=== PATIENT | male | born 1975 | race Caucasian/White ===

== ENCOUNTER 2023-08-08 08:27 | Emergency (ER) | payer OTHER, SELFPAY ==
[2023-08-08] MEDS: TORADOL 30 MG IV (08:54)
[2023-08-08] MEDS: NSS 1000 IV (08:55)
[2023-08-08 09:02] LABS: % Basophils 0.6 % (0-2); % Immature Granulocytes 0.3 % (0-0.5); % Lymphocytes 20.3 % (20.5-51.1); % Monocytes 6.6 % (1.7-9.3); % Neutrophils 71.2 % (42.2-75.2); Absolute Basophils 0.1 10^3/uL (0-0.2); Absolute Eosinophils 0.1 10^3/uL (0-0.7); Absolute Lymphocytes 1.8 10^3/uL (1.2-3.4); Absolute Monocytes 0.6 10^3/uL (0.1-0.6); Absolute Neutrophils 6.3 10^3/uL (1.4-6.5); Hematocrit 43.2 % (39.0-52.0); Hemoglobin 15.2 g/dL (13.0-18.0); Mean Corp Hgb Conc. 35.2 g/dL (33.0-37.0); Mean Corpuscular Volume 90.9 fL (80.0-94.0); Mean Platelet Volume 9.9 fL (7.4-10.4); Nucleated Red Blood Cells % 0 % (-); Platelet Count 274 10^3/uL (130-400); Red Blood Cell Count 4.75 10^6/uL (4.70-6.10); Red Cell Dist. Width 12.5 % (11.5-14.5); White Blood Cell Count 8.9 10^3/uL (4.8-10.8)
[2023-08-08 09:28] LABS: ALT (SGPT) 19 U/L (0-50); AST (SGOT) 20 U/L (17-59); Albumin 4.9 g/dl (3.5-5.0); Alkaline Phosphatase 54 U/L (38-126); Blood Urea Nitrogen 12 mg/dl (9-20); Calcium 10.2 mg/dl (8.4-10.2); Carbon Dioxide 25 mmol/L (22-30); Chloride 105 mmol/L (98-107); Glucose 126 mg/dl (70-99); Sodium 141 mmol/L (135-145); Total Bilirubin 0.6 mg/dl (0.2-1.3); Total Protein 7.4 g/dl (6.3-8.2); eGFR > 60.00
[2023-08-08 09:33] LABS: Urine Albumin Negative (Neg - Trace); Urine Bilirubin Negative (Negative); Urine Character Clear (Clear); Urine Color Yellow; Urine Glucose Negative (Negative); Urine Ketone Negative (Negative); Urine Leukocyte Negative (Negative); Urine Nitrite Negative (Negative); Urine Occult Blood Negative (Negative); Urine Urobilinogen Negative (Neg - 1+)
[2023-08-08] MEDS: TYLENOL 650 MG PO (09:52)
--- NOTE | 2023-08-08 10:27 | ED.GENMED ---
History of Present Illness
General
Chief Complaint: Flank Pain
Source: patient and spouse
Exam Limitations: none
Time Seen by Provider: 08/08/23 08:32
Nursing documentation reviewed up to this point in time: agreed with
Travel History
Have you had any contact with someone who has COVID-19?: No
Do you have any symptoms of coronavirus? Fever > 100 degrees, chills, cough, shortness of breath, sore throat, loss of taste or smell, muscle aches, or headache?: No
History of Present Illness
History of Present Illness:
48-year-old male past medical history of kidney stones previous back surgery 2021 previous stroke presenting to the emergency department today with concerns of left-sided flank pain over the past 5 days getting worse made worse with movement.
Denies significant urinary symptoms nausea vomiting or diarrhea. Denies any fevers. Made worse with movement and palpation.
Review of Systems
Review of Systems
Allergies reviewed?: Yes
All Other Systems: ROS reviewed and negative except as documented in HPI and ROS
Phy Exam
Physical Exam
Physical Exam:
GENERAL: Alert , in no apparent distress
EYE: pupils equal and reactive
NECK: Supple, no significant adenopathy.
ENT: o/p clr, mmm.
CARDIAC: Regular rate and rhythm .
LUNGS: Clear breath sounds bilaterally, no acute respiratory distress, no wheezes/rales/rhonchi
ABDOMENttppalpation to the left lateral anterior ribs no belly pain. Soft, without focal tenderness, no r/g, no cvat
NEUROLOGICAL: Alert and oriented, no focal neuro deficits
SKIN: Warm and dry, skin intact.
MUSCULOSKELETAL: No edema, well perfused.
PSYCH: Normal and appropriate interaction.
Course
Orders/Labs/Results
Orders:
Orders
08/08/23 08:44
0.9% Sodium Chloride 1000 ml [Nss] 1,000 ml IV BOLUS
Ketorolac [Toradol] 30 mg IV NOW STA
08/08/23 08:45
CT Abd/pel Without Iv Or Oral Urgent
Comment:
Reason For Exam: left flank pain
08/08/23 08:49
Complete Blood Count/With Diff Urgent
Comprehensive Metabolic Panel Urgent
08/08/23 08:53
Urinalysis Reflex To Culture Urgent
Date Specimen was Collected: 08/08/23
Time Specimen was Collected: 08:50
08/08/23 09:39
Acetaminophen [Tylenol] 650 mg PO NOW STA
08/08/23 11:42
Oxycodone [Roxicodone] 10 mg PO NOW STA
Prednisone [Deltasone] 50 mg PO NOW STA
Abnormal Lab Results
08/08/23
08:49
MCH 32.0 H pg
(27.0-31.0)
Lymphocytes % 20.3 L %
(20.5-51.1)
Glucose 126 H mg/dl
(70-99)
08/08/23 08:49
08/08/23 08:49
Vital Signs
Initial and Last Documented VS:
Initial Vital Signs
Temp Pulse Resp Pulse Ox
97.8 F 57 18 96
08/08/23 08:28 08/08/23 08:28 08/08/23 08:28 08/08/23 08:28
Last Documented Vital Signs
Temp Pulse Resp Pulse Ox
97.8 F 57 18 96
08/08/23 08:28 08/08/23 08:28 08/08/23 08:28 08/08/23 08:28
MDM/Problems Addressed
MDM/Problems Addressed:
48-year-old male presenting to the emergency department today with concerns of left-sided flank pain over the past 5 days. Does have a history of kidney stones. On arrival patient with reproducible tenderness to the left lower anterior ribs with
no overlying skin changes no significant belly pain. Labs unremarkable urinalysis normal CT scan without emergent findings. Labs unremarkable. Patient's pain is reproducible only to the rib cage but no signs of fracture on CT patient was written
for steroid for possible costochondritis otherwise pain medication advised for close outpatient follow-up with the primary care doctor. Return precautions given.
*Critical Care Note
Total Time (30-74mins, 75-104mins- exclusive of procedures): Not Applicable
ED Attending Note
-
Portions of this chart may have been created with voice recognition software.� Occasional wrong word or��sound alike� substitutions may have occurred due to the inherent limitations of voice recognition software.
Discharge Plan
Departure
Patient Disposition: Home (Routine Discharge)
Date of Disposition: 08/08/23
Time of Disposition: 11:45
Patient with high blood pressure during this ER visit?: No
Condition: Good
Covid-19: Not Applicable
Discharge Problem:
Rib pain
Instructions: Costochondritis
Prescriptions:
New
prednisone 20 mg tablet
40 mg PO DAILY 4 Days Qty: 8 0RF
oxycodone-acetaminophen [Percocet] 5-325 mg tablet
1 tab PO Q8H PRN (Reason: Pain) Qty: 7 0RF
Referrals:
Samara Frausto MD [Family Provider] -
Activity Restrictions/Additional Instructions:
You came to the emergency department today with concerns of rib discomfort. Here you had a reassuring assessment with no signs of life-threatening etiology. Please take the prescribed medications and follow-up closely with your primary care
doctor. Return to the emergency department for any worsening, new or concerning symptoms.
Interventions
Interventions:
*Risk Screen - Suicide Last Done: 08/08/23 08:28
*General Assessment Last Done: 08/08/23 08:28
*Neglect/Abuse Screening Last Done: 08/08/23 08:28
*ED COVID-19 Vaccine History Last Done: 08/08/23 08:28
SA-Qomncj-Rhgxffbydj Assessment Last Done: 08/08/23 08:41
ED-Male Genitourinary Assessment Last Done: 08/08/23 08:41
Discharge Date and Time
Print Language: SLOVAK
[2023-08-08] MEDS: ROXICODONE 10 MG PO (12:03)
[2023-08-08] MEDS: DELTASONE 50 MG PO (12:03)
== END 2023-08-08 12:04 | disposition home or self-care (01) ==
LOC: EMR 08:27
PROVIDERS: Physician Assistant; EMERGENCY PHYSICIAN Emergency Medicine; FAMILY PHYSICIAN Internal Medicine
DX: R07.81 Pleurodynia (principal); Z87.442 Personal history of urinary calculi; Z86.73 Personal history of transient ischemic attack (TIA), and cerebral infarction without residual deficits
CPT/HCPCS: 99284; 96374; 96361; 74176; 80053; 81003; 85025

== ENCOUNTER 2025-01-25 09:23 | Emergency (ER) | payer BC, SELFPAY ==
[2025-01-25 09:29] VITALS: BP 150/103
[2025-01-25 09:40] VITALS: BP 151/109
--- NOTE | 2025-01-25 09:43 | ED.GENMED ---
History of Present Illness
General
Chief Complaint: Chest Pain
Source: patient
Exam Limitations: none
Time Seen by Provider: 01/25/25 09:36
Nursing documentation reviewed up to this point in time: agreed with
History of Present Illness
History of Present Illness:
Patient is a 49-year-old male with past medical history of CVA presents to the ER for evaluation patient reports he has had left anterior chest pressure for the past 2 weeks. For the past 1 week however it has been constant worse with sitting. He
reports when he stands up it goes away. It is not associate with exertion. He denies any associated nausea vomiting diaphoresis or shortness of breath. He denies any recent trauma or lifting. He denies any fever chills or recent cough. He has
not tried anything for his discomfort.
He is on aspirin (1 baby aspirin a day) along with his statin for past medical history of CVA. The CVA was 2 years ago he does have a carotid stent in place. He does state they are unsure exactly what caused the stroke.
Phy Exam
General Physical Exam
General Presentation: no apparent distress
General age: appears stated age
General Skin: warm and dry
General Habitus: normal
General Mental: alert
General Hydration: appears well hydrated
Cardiovascular Exam
Cardiovascular Exam: regular rate/rhythm, no murmur and normal peripheral pulses
Pulmonary Exam
Pulmonary Exam: lungs clear, no respiratory distress and chest non tender
Neurological Exam
Neurological Exam: alert and oriented x3
Musculoskeletal Exam
Musculoskeletal Exam: full ROM
Skin Exam
Skin Exam: normal color and warm/dry
Psychiatric Exam
Psychiatric Exam: normal mood/affect
Scores
Heart Score for Chest Pain Patients
STEMI patient?: Not applicable
Course
Orders/Labs/Results
Orders:
Orders
01/25/25 09:24
EKG [Electrocardiogram (*1)] Urgent
Reason for Study: Chest Pain
EKG- Treatment ONCE
01/25/25 09:46
IV Insert/Care/Rem.- Treatment PRN
01/25/25 09:47
Cardiac Monitoring- Treatment ONCE
CR Chest - 2 Views Urgent
Comment:
Reason For Exam: cp
01/25/25 09:50
Complete Blood Count/With Diff Urgent
Comprehensive Metabolic Panel Urgent
Troponin I Urgent
Abnormal Lab Results
01/25/25
09:50
MCH 32.4 H pg
(27.0-31.0)
Absolute Monos (auto) 0.7 H 10^3/uL
(0.1-0.6)
Monocytes % 9.4 H %
(1.7-9.3)
01/25/25 09:50
01/25/25 09:50
Vital Signs
Initial and Last Documented VS:
Initial Vital Signs
Temp Pulse Resp BP Pulse Ox
98.7 F 64 18 150/103 97
01/25/25 09:29 01/25/25 09:29 01/25/25 09:29 01/25/25 09:29 01/25/25 09:29
Last Documented Vital Signs
Temp Pulse Resp BP Pulse Ox
98.7 F 50 13 148/100 94
01/25/25 09:29 01/25/25 11:30 01/25/25 11:30 01/25/25 11:27 01/25/25 10:45
Hand Fretted Instrument Maker consulted with Physician
Hand Fretted Instrument Maker consulted with physician?: Yes
Name of Physician Consulted: DR apodaca
MDM/Problems Addressed
MDM/Problems Addressed:
Patient is a 49-year-old male with no past medical history presents to the ER for evaluation of chest pressure. He has had chest pressure for the past 2 weeks worse with sitting resolved with standing. No associated shortness of breath. He denies
any recent injury. patient presents awake alert no acute distress no acute findings on EKG negative cardiac troponin negative chest x-ray. He is nontachycardic nonhypoxic. Symptoms are not consistent with DVT PE he has no associated risks of DVT
PE. No recent fevers or illness not consistent with pericarditis.
When patient had a stroke several years ago he was seen by lathe hand at [place] he reports he is able to follow-up with them as an outpatient recommend close outpatient follow-up with cardiology.
Chronic conditions affecting care:
hx of cva
*Radiology
Radiology exam reviewed: radiology read reviewed
*Pulse Oximetry
SaO2: 97
Oxygen Mode of Delivery: Room air
Patient hypoxic: no
*EKG
Interpreted by ED Provider?: Yes
Interpretation: normal
Comparison EKG: no comparison EKG present
Heart Rate: 59
Rate: bradycardiac
Rhythm: sinus
Ischemia: no ischemia
*Critical Care Note
Total Time (30-74mins, 75-104mins- exclusive of procedures): Not Applicable
ED Attending Note
-
Portions of this chart may have been created with voice recognition software.� Occasional wrong word or��sound alike� substitutions may have occurred due to the inherent limitations of voice recognition software.
Discharge Plan
Departure
Patient Disposition: Home (Routine Discharge)
Date of Disposition: 01/25/25
Time of Disposition: 12:15
Patient with high blood pressure during this ER visit?: Yes
Condition: Fair
Covid-19: Not Applicable
Discharge Problem:
Chest pain
Instructions: Chest Pain NON-DHP Lithographic Stripper Follow Up, BLOOD PRESSURE
Prescriptions:
No Action
atorvastatin 20 mg Tablet
20 mg PO DAILY
mirtazapine [Remeron] 15 mg Tablet
7.5 mg PO DAILY
escitalopram oxalate [Lexapro] 20 mg Tablet
20 mg PO DAILY
aspirin 81 mg Capsule
81 mg PO DAILY
Referrals:
Samara Frausto MD [Family Provider, Internal Medicine]
Activity Restrictions/Additional Instructions:
It is recommend that you follow-up with your lathe hand as soon as possible in the next several days for reevaluation. Please call your lathe hand today to make an appointment. Return if any worsening of symptoms. Your EKG and cardiac blood
work were normal here in the ER. Your chest x-ray was also normal.
Interventions
Interventions:
*Risk Screen - Suicide Last Done: 01/25/25 09:29
*General Assessment Last Done: 01/25/25 09:29
*Neglect/Abuse Screening Last Done: 01/25/25 09:29
*ED- Fall Risk Assessment Last Done: 01/25/25 09:42
*ED COVID-19 Vaccine History Last Done: 01/25/25 09:29
*ED Influenza Vaccine History Last Done: 01/25/25 09:29
ED- Cardiac Assessment Last Done: 01/25/25 09:39
Discharge Date and Time
Print Language: COLOMBI[place]
[2025-01-25 09:58] LABS: Hematocrit 43.6 % (39.0-52.0); Hemoglobin 15.9 g/dL (13.0-18.0); Mean Corp Hgb Conc. 36.5 g/dL (33.0-37.0); Mean Corpuscular Volume 89.0 fL (80.0-94.0); Nucleated Red Blood Cells % 0 % (-); Platelet Count 243 10^3/uL (130-400); Red Cell Dist. Width 12.3 % (11.5-14.5)
[2025-01-25 10:00] VITALS: BP 143/103
[2025-01-25 10:03] VITALS: BP 143/103
[2025-01-25 10:21] LABS: Troponin I < 0.012 ng/ml
[2025-01-25 10:33] LABS: ALT (SGPT) 37 U/L (0-50); AST (SGOT) 29 U/L (17-59); Albumin 4.6 g/dl (3.5-5.0); Alkaline Phosphatase 52 U/L (38-126); Blood Urea Nitrogen 18 mg/dl (9-20); Calcium 9.5 mg/dl (8.4-10.2); Carbon Dioxide 27 mmol/L (22-30); Chloride 105 mmol/L (98-107); Glucose 94 mg/dl (70-99); Potassium 4.1 mmol/L (3.5-5.1); Sodium 139 mmol/L (135-145); Total Protein 7.4 g/dl (6.3-8.2); eGFR > 60.00
[2025-01-25 11:27] VITALS: BP 148/100
[2025-01-25 12:00] VITALS: BP 145/97
== END 2025-01-25 12:31 | disposition home or self-care (01) ==
LOC: EMR 09:23
PROVIDERS: Nurse Practitioner; EMERGENCY PHYSICIAN Emergency Medicine; FAMILY PHYSICIAN Internal Medicine
DX: R07.9 Chest pain, unspecified (principal); R03.0 Elevated blood-pressure reading, without diagnosis of hypertension; Z79.82 Long term (current) use of aspirin; Z86.73 Personal history of transient ischemic attack (TIA), and cerebral infarction without residual deficits
CPT/HCPCS: 99284; 71046; 80053; 84484; 85025; 93005